=== PATIENT | male | born 1985 | race Caucasian/White ===

== ENCOUNTER 2017-06-14 15:18 | Emergency (ER) | payer OTHER ==
[~2017-06-14] VITALS: Ht 175.3 cm; Wt 106.1 kg
[~2017-06-14 15:18] MED LIST: BACTRIM DS TAB1 EACH PO; BYSTOLIC 5 MG5 M1 PO; IBUPROFEN 600600 M1 PO; NORCO 5-325 TA1 EACH PO
[2017-06-14] MEDS ORDERED: LISINOPRIL5 MG PO (15:27)
[2017-06-14] MEDS ORDERED: PREDNISONE 20 M20 MG PO (16:37)
[2017-06-14 16:39] VITALS: BP 121/79
== END 2017-06-14 16:55 | disposition home or self-care (01) ==
LOC: ER 15:18
DX: K14.8 Other diseases of tongue (principal); T46.4X5A Adverse effect of angiotensin-converting-enzyme inhibitors, initial encounter; I10 Essential (primary) hypertension; Z88.0 Allergy status to penicillin; Z88.8 Allergy status to other drugs, medicaments and biological substances; Y92.89 Other specified places as the place of occurrence of the external cause

== ENCOUNTER 2017-11-18 10:20 | Emergency (ER) | payer OTHER ==
[~2017-11-18] VITALS: Ht 175.3 cm; Wt 108.9 kg
[~2017-11-18 10:20] MED LIST changes: +LISINOPRIL5 MG PO; +PREDNISONE 20 M20 MG PO
[2017-11-18] MEDS ORDERED: NORVASC5 MG PO (10:29)
[2017-11-18] MEDS ORDERED: SERTRALINE HCL25 MG PO (10:30)
[2017-11-18] MEDS ORDERED: ASPIR 8181 MG PO (10:30)
[2017-11-18] MEDS ORDERED: KEFLEX500 M1 PO (11:25)
[2017-11-18] MEDS ORDERED: IBUPROFEN 800800 M1 PO (11:38)
== END 2017-11-18 11:50 | disposition home or self-care (01) ==
LOC: ER 10:20
DX: S61.432A Puncture wound without foreign body of left hand, initial encounter (principal); I10 Essential (primary) hypertension; Z88.0 Allergy status to penicillin; Z88.8 Allergy status to other drugs, medicaments and biological substances; W26.0XXA Contact with knife, initial encounter; Y93.89 Activity, other specified; Y92.89 Other specified places as the place of occurrence of the external cause; Y99.8 Other external cause status

== ENCOUNTER 2019-04-26 21:11 | Emergency (ER) | payer OTHER ==
[~2019-04-26] VITALS: Ht 175.3 cm; Wt 117.9 kg
[~2019-04-26 21:11] MED LIST changes: +ASPIR 8181 MG PO; +IBUPROFEN 800800 M1 PO; +KEFLEX500 M1 PO; +NORVASC5 MG PO; +SERTRALINE HCL25 MG PO
[2019-04-26 21:12] VITALS: BP 152/98
[2019-04-26] MEDS ORDERED: MAGOX 400400 MG PO (21:15)
== END 2019-04-26 22:43 | disposition home or self-care (01) ==
LOC: ER 21:11
DX: S86.811A Strain of other muscle(s) and tendon(s) at lower leg level, right leg, initial encounter (principal); I10 Essential (primary) hypertension; Z87.891 Personal history of nicotine dependence; Z88.0 Allergy status to penicillin; Z88.8 Allergy status to other drugs, medicaments and biological substances; Z79.899 Other long term (current) drug therapy; Z79.82 Long term (current) use of aspirin; W01.0XXA Fall on same level from slipping, tripping and stumbling without subsequent striking against object, initial encounter; Y93.89 Activity, other specified; Y92.89 Other specified places as the place of occurrence of the external cause; Y99.9 Unspecified external cause status